=== PATIENT | male | born 1980 | race African-American/Black ===

== ENCOUNTER 2019-08-20 15:38 | Emergency (ER) | payer BC, MEDICAID ==
[~2019-08-20] VITALS: Ht 170.2 cm; Wt 64.0 kg
[2019-08-20 15:44] VITALS: BP 146/80
== END 2019-08-20 16:18 | disposition home or self-care (01) ==
LOC: ER 15:44
DX: Z72.53 High risk bisexual behavior (principal); J45.909 Unspecified asthma, uncomplicated; Z60.2 Problems related to living alone